=== PATIENT | female | born 1950 | race Caucasian/White ===

== ENCOUNTER → 2017-07-10 | Outpatient (CLI) | payer MEDICARE ==
[~2017-07-10] MED LIST: ALBU4ER NEB; ALBU90OI6 INH; AMIT25 PO; Aspir-Low81 MG PO; CITA20 PO; FEXPSEER PO; FISH1000 PO; HYDCHL25 PO; LISI5 PO; METF500 PO; NEBI5 PO; VICODIN 5-3001 EACH PO
== END ==
LOC: LAB SHORT 17:17 → LAB EV 17:17
DX: N39.0 Urinary tract infection, site not specified (principal)
CPT/HCPCS: 87086

== ENCOUNTER → 2018-04-23 | Outpatient (CLI) | payer MEDICARE | LOC: LAB SHORT 15:40 → LAB EV 15:40 | DX: R30.0 Dysuria (principal) | CPT/HCPCS: 87086 ==

== ENCOUNTER 2018-10-19 18:34 | Emergency (ER) | payer MEDICARE ==
[~2018-10-19] VITALS: Ht 162.6 cm; Wt 151.9 kg
[2018-10-19] MEDS ORDERED: TORS10 PO (19:46)
[2018-10-19] MEDS ORDERED: CETI5 PO (19:46)
[2018-10-19] MEDS ORDERED: TIOT18 INH (19:49)
[2018-10-19] MEDS ORDERED: POTA10T PO (19:50)
[2018-10-19] MEDS ORDERED: BREO ELLIPTA 11 EACH IH (19:53)
[2018-10-19] MEDS ORDERED: ESCI20 PO (19:54)
[2018-10-19] MEDS ORDERED: MONT10T PO (19:55)
[2018-10-19] MEDS ORDERED: OMEPRAZOLE20 MG PO (19:55)
== END 2018-10-19 21:42 | disposition home or self-care (01) ==
LOC: ER 18:34
DX: S00.531A Contusion of lip, initial encounter (principal); S00.12XA Contusion of left eyelid and periocular area, initial encounter; Z79.899 Other long term (current) drug therapy; Z79.82 Long term (current) use of aspirin; Z79.84 Long term (current) use of oral hypoglycemic drugs; Z79.51 Long term (current) use of inhaled steroids; Z87.891 Personal history of nicotine dependence; W01.0XXA Fall on same level from slipping, tripping and stumbling without subsequent striking against object, initial encounter
CPT/HCPCS: 36415; 70450; 90714; 99284-25

== ENCOUNTER 2019-06-02 17:22 | Emergency (ER) | payer MEDICARE ==
[~2019-06-02] VITALS: Ht 170.2 cm; Wt 155.1 kg
[~2019-06-02 17:22] MED LIST changes: +BREO ELLIPTA 11 EACH IH; +CETI5 PO; +ESCI20 PO; +MONT10T PO; +OMEPRAZOLE20 MG PO; +POTA10T PO; +TIOT18 INH; +TORS10 PO
[2019-06-02 19:03] LABS: BASOPHILS ABSOLUTE AUTO 0.01 K/mm3 (0.00-0.23); BASOPHILS PERCENT AUTO 0 % (0-2); EOSINOPHILS ABSOLUTE AUTO 0.11 K/mm3 (0.00-0.68); EOSINOPHILS PERCENT AUTO 2 % (0-6); Hematocrit 40.9 % (33.0-51.0); Hemoglobin 12.8 g/dL (11.5-16.0); IMMATURE GRAN ABSOLUTE AUTO 0.02 K/mm3 (0.00-0.10); IMMATURE GRAN PERCENT AUTO 0 % (0-1); LYMPHOCYTES ABSOLUTE AUTO 1.47 K/mm3 (0.84-5.20); LYMPHOCYTES PERCENT AUTO 21 % (21-46); MONOCYTES ABSOLUTE AUTO 0.38 K/mm3 (0.16-1.47); MONOCYTES PERCENT AUTO 5 % (4-13); Mean Corpuscular HGB 30.8 pg (26.0-34.0); Mean Corpuscular HGB Conc 31.3 g/dL (31.5-36.5); Mean Corpuscular Volume 99 fL (80-100); Mean Platelet Volume 11.1 fL (9.1-12.4); NEUTROPHILS ABSOLUTE AUTO 5.07 K/mm3 (1.96-9.15); NEUTROPHILS PERCENT AUTO 72 % (41-73); Platelet Count 141 K/mm3 (150-400); RDW Coefficient Variation 14.2 % (11.7-14.2); RDW Standard Deviation 51.2 fL (35.1-46.3); Red Blood Cell Count 4.15 M/mm3 (3.80-5.20); White Blood Cell Count 7.06 K/mm3 (4.00-11.30)
[2019-06-02 19:22] LABS: Alanine Aminotransfer (ALT/SGP 17 U/L (12-78); Albumin, Blood 3.2 g/dL (3.4-5.0); Albumin/Globulin Ratio 0.7 (0.8-1.8); Alk Phos 127 U/L (50-136); Anion Gap 7 mmol/L (6-16); Aspartate Aminotrans (AST/SGOT 36 U/L (12-37); Bilirubin, Total 0.9 mg/dL (0.1-1.0); Blood Urea Nitrogen 11 mg/dL (8-24); Bun/Creatinine Ratio 12.3 (12.0-20.0); CO2, Blood 25 mmol/L (21-32); Calcium, Blood 9.3 mg/dL (8.5-10.1); Chloride, Blood 106 mmol/L (98-108); Creatinine, Blood 0.89 mg/dL (0.40-1.00); Globulin, Blood 4.4 g/dL (2.2-4.0); Glomerular Filtration Rate >60 (60-); Glucose, Blood 144 mg/dL (70-99); Potassium, Blood 4.2 mmol/L (3.5-5.5); Sodium, Blood 138 mmol/L (136-145); Total Protein, Blood 7.6 g/dL (6.4-8.2)
[2019-06-02 21:35] LABS: Source, Urine Clean Catch
[2019-06-02 21:41] LABS: Appearance, Urine Clear (Clear); Bilirubin, Urine Neg (Neg); Blood, Urine 1+ (Neg); Color, Urine Amber (P-Yellow); Glucose Qualitative, Urine Neg (Neg); Ketones, Urine Neg (Neg); Leukocyte Esterase, Urine 1+ (Neg); Nitrite, Urine Neg (Neg); Protein, Urine 1+ (Neg); Specific Gravity, Urine 1.015 (1.003-1.022); Urobilinogen, Urine NORM (Normal)
[2019-06-02 21:48] LABS: Bacteria Mod /hpf; Mucus Light (0-Heavy); Red Blood Cells, Urine 0-2 /hpf (0-2); Squamous Epithelial Cells Mod /hpf (Few)
[2019-06-02] MEDS ORDERED: ONDA4ODT SL (22:07)
== END 2019-06-02 22:50 | disposition home or self-care (01) ==
LOC: ER 17:22
PROVIDERS: Emergency Medicine
DX: R10.30 Lower abdominal pain, unspecified (principal); E11.9 Type 2 diabetes mellitus without complications; I10 Essential (primary) hypertension; K21.9 Gastro-esophageal reflux disease without esophagitis; Z87.891 Personal history of nicotine dependence; Z88.8 Allergy status to other drugs, medicaments and biological substances; Z79.84 Long term (current) use of oral hypoglycemic drugs; Z79.899 Other long term (current) drug therapy
CPT/HCPCS: 36415; 74176; 80053; 81001; 83690; 85025; 87086; 99284-25; A9270-GY

== ENCOUNTER 2019-07-24 08:16 | Day surgery (SDC) | payer MEDICARE ==
[~2019-07-24] VITALS: Ht 165.1 cm; Wt 140.1 kg
[~2019-07-24 08:16] MED LIST changes: +ATOR10 PO; +CLOB.05TO; +MULTIVITAMINS1 EAC3 PO; +ONDA4ODT SL
--- NOTE | 2019-07-24 09:24 | NUR ---
History, Chart, Medications and Allergies reviewed before start of procedure. Lungs clear T/O to Auscultation. Patient confirms NPO status and agrees with scheduled surgery. Patient States Post-Procedure ride home has been arranged. Pre-Op teaching done. Pt verbalizes understanding.
--- NOTE | 2019-07-24 10:50 | NUR ---
Patient States Post-Procedure ride home has been arranged with her friend, Janey White.
--- NOTE | 2019-07-24 11:00 | NUR ---
assumed care of patient from Clarice THORNE. vss low bp given coffee to drink per request
--- NOTE | 2019-07-24 11:39 | NUR ---
PT A&OX4, VSS, DENIES PAIN. DENIES N&V, ANA PO. IV DC'D. Discharge instructions reviewed with patient. Patient verbalizes understanding. Copy given to patient to take home. Patient States Post-Procedure ride home has been arranged. TOOK PT OUT BY IZA, DIGITAL DATA ANALYST SIGNED.
== END 2019-07-24 23:19 | disposition home or self-care (01) ==
LOC: ORSCMMR 08:16 → ORD 10:00 → ORSCMMR 23:19
PROVIDERS: Internal Medicine Gastroenterology
PROC: 06L38CZ Occlusion of Esophageal Vein with Extraluminal Device, Via Natural or Artificial Opening Endoscopic (ICD-10-PCS; principal; 2019-07-24 10:00)
PROC: 0DJD8ZZ Inspection of Lower Intestinal Tract, Via Natural or Artificial Opening Endoscopic (ICD-10-PCS; principal; 2019-07-24 10:00)
DX: K74.60 Unspecified cirrhosis of liver (principal); K62.5 Hemorrhage of anus and rectum; Z86.010 Personal history of colon polyps; K57.30 Diverticulosis of large intestine without perforation or abscess without bleeding; K64.1 Second degree hemorrhoids; K76.6 Portal hypertension; K31.89 Other diseases of stomach and duodenum; K44.9 Diaphragmatic hernia without obstruction or gangrene; I85.00 Esophageal varices without bleeding; I10 Essential (primary) hypertension; N18.3 Chronic kidney disease, stage 3 (moderate); J44.9 Chronic obstructive pulmonary disease, unspecified; Z87.891 Personal history of nicotine dependence; G47.33 Obstructive sleep apnea (adult) (pediatric); E11.9 Type 2 diabetes mellitus without complications; Z79.84 Long term (current) use of oral hypoglycemic drugs; Z79.899 Other long term (current) drug therapy; Z79.82 Long term (current) use of aspirin; E66.01 Morbid (severe) obesity due to excess calories; Z68.43 Body mass index [BMI] 50.0-59.9, adult
CPT/HCPCS: 82947; J2704; J7120

== ENCOUNTER 2020-08-10 09:31 | Day surgery (SDC) | payer MEDICARE ==
[~2020-08-10] VITALS: Ht 160 cm; Wt 118.0 kg
[2020-08-10] MEDS ORDERED: MONTELUKAST SODI1 GM (09:48)
[2020-08-10] MEDS ORDERED: CITA20 (09:49)
[2020-08-10] MEDS ORDERED: Flonase 0.05% N16 GM (09:49)
== END 2020-08-10 11:16 | disposition home or self-care (01) ==
LOC: ORSCSDS 09:31
PROVIDERS: Internal Medicine Gastroenterology
PROC: 0DB58ZX Excision of Esophagus, Via Natural or Artificial Opening Endoscopic, Diagnostic (ICD-10-PCS; principal; 2020-08-10 10:45)
DX: K74.60 Unspecified cirrhosis of liver (principal); K31.89 Other diseases of stomach and duodenum; I85.00 Esophageal varices without bleeding; K44.9 Diaphragmatic hernia without obstruction or gangrene; K21.9 Gastro-esophageal reflux disease without esophagitis; I10 Essential (primary) hypertension; J44.9 Chronic obstructive pulmonary disease, unspecified; K76.6 Portal hypertension; K76.0 Fatty (change of) liver, not elsewhere classified; Z68.42 Body mass index [BMI] 45.0-49.9, adult; E66.01 Morbid (severe) obesity due to excess calories; Z87.891 Personal history of nicotine dependence; Z79.82 Long term (current) use of aspirin
CPT/HCPCS: 82947; J2704; J7120

== ENCOUNTER 2021-06-13 08:19 | Day surgery (SDC) | payer OTHER ==
[~2021-06-13] VITALS: Ht 160 cm; Wt 116.2 kg
[~2021-06-13 08:19] MED LIST changes: +CITA20; +Flonase 0.05% N16 GM; +MONTELUKAST SODI1 GM
== END 2021-06-13 10:26 | disposition home or self-care (01) ==
LOC: ORSCSDS 08:19
PROVIDERS: Internal Medicine Gastroenterology
PROC: 0DJ08ZZ Inspection of Upper Intestinal Tract, Via Natural or Artificial Opening Endoscopic (ICD-10-PCS; principal; 2021-06-13 09:30)
DX: K21.9 Gastro-esophageal reflux disease without esophagitis (principal); K64.4 Residual hemorrhoidal skin tags; I85.00 Esophageal varices without bleeding; K22.2 Esophageal obstruction; I10 Essential (primary) hypertension; J44.9 Chronic obstructive pulmonary disease, unspecified; E66.01 Morbid (severe) obesity due to excess calories; Z68.42 Body mass index [BMI] 45.0-49.9, adult; E11.9 Type 2 diabetes mellitus without complications; Z79.84 Long term (current) use of oral hypoglycemic drugs; Z79.899 Other long term (current) drug therapy
CPT/HCPCS: 82947; J2704; J7120

== ENCOUNTER 2022-03-01 07:25 | Day surgery (SDC) | payer OTHER ==
[~2022-03-01] VITALS: Ht 162.6 cm; Wt 118.9 kg
[2022-03-01] MEDS ORDERED: OXYC5 (07:52)
[2022-03-01] MEDS ORDERED: PRAV20 PO (07:53)
[2022-03-01] MEDS ORDERED: PROAIR DIGIHAL90 MCG (07:54)
[2022-03-01] MEDS ORDERED: VITAMIN D310 MC4 (07:55)
[2022-03-01] MEDS ORDERED: B-100 COMPLEX100 MG (07:56)
--- NOTE | 2022-03-01 10:27 | NUR ---
03/01/22 Rohan7 MALIK APPIAH DOCUMENTED LR, PT RECEIVED NORMAL SALINE- 500CC
--- NOTE | 2022-03-01 16:07 | NUR ---
03/01/22 1607 Hugo Turner FLUID TOTALS INCORRECT, BECAUSE INITIAL FLUID VOLUME INCORRECT.
== END 2022-03-01 09:00 | disposition home or self-care (01) ==
LOC: ORSCSDS 07:25
PROVIDERS: Ophthalmology
PROC: 08DK3ZZ Extraction of Left Lens, Percutaneous Approach (ICD-10-PCS; principal; 2022-03-01 08:30)
DX: H25.12 Age-related nuclear cataract, left eye (principal); H21.81 Floppy iris syndrome; F41.9 Anxiety disorder, unspecified; E78.5 Hyperlipidemia, unspecified; I10 Essential (primary) hypertension; K75.81 Nonalcoholic steatohepatitis (NASH); J44.9 Chronic obstructive pulmonary disease, unspecified; G47.33 Obstructive sleep apnea (adult) (pediatric); E11.9 Type 2 diabetes mellitus without complications; K21.9 Gastro-esophageal reflux disease without esophagitis; R00.0 Tachycardia, unspecified; E66.9 Obesity, unspecified; Z68.42 Body mass index [BMI] 45.0-49.9, adult; Z79.84 Long term (current) use of oral hypoglycemic drugs; Z79.82 Long term (current) use of aspirin; Z79.899 Other long term (current) drug therapy
CPT/HCPCS: 82947; J2001; J2250; J3010; J3301; J7040; V2632

== ENCOUNTER 2022-03-15 10:43 | Day surgery (SDC) | payer OTHER ==
[~2022-03-15] VITALS: Ht 162.6 cm; Wt 117.3 kg
[~2022-03-15 10:43] MED LIST changes: +B-100 COMPLEX100 MG; +OXYC5; +PRAV20 PO; +PROAIR DIGIHAL90 MCG; +VITAMIN D310 MC4
--- NOTE | 2022-03-15 11:51 | NUR ---
03/15/22 1151 Jenna Carter TETRACAINE TO RIGHT EYE AT 1136 PLEDGET TO RIGHT EYE AT 1137 BY [facility].HENRIQUET
== END 2022-03-15 13:12 | disposition home or self-care (01) ==
LOC: ORSCSDS 10:43
PROVIDERS: Ophthalmology
PROC: 08RJ3JZ Replacement of Right Lens with Synthetic Substitute, Percutaneous Approach (ICD-10-PCS; principal; 2022-03-15 12:00)
DX: H25.11 Age-related nuclear cataract, right eye (principal); I10 Essential (primary) hypertension; J45.909 Unspecified asthma, uncomplicated; E11.9 Type 2 diabetes mellitus without complications; Z79.84 Long term (current) use of oral hypoglycemic drugs; Z79.899 Other long term (current) drug therapy
CPT/HCPCS: 82947; J2001; J2250; J3010; J3301; J7040; V2632

== ENCOUNTER 2022-05-02 10:36 | Day surgery (SDC) | payer OTHER ==
[~2022-05-02] VITALS: Ht 160 cm; Wt 118.0 kg
[2022-05-02] MEDS ORDERED: FLUTICASONE-SA1 EAC1 (11:06)
[2022-05-02] MEDS ORDERED: BREO ELLIPTA 11 EAC1 (11:06)
[2022-05-02] MEDS ORDERED: CLOBETASOL EMOL15 G1 (11:06)
[2022-05-02] MEDS ORDERED: ASPI81CH (11:06)
[2022-05-02] MEDS ORDERED: ALBU2.5V5 (11:06)
[2022-05-02] MEDS ORDERED: CITALOPRAM HBR10 MG (11:06)
[2022-05-02] MEDS ORDERED: FISH OIL 1,2001 EAC7 (11:06)
[2022-05-02] MEDS ORDERED: METF500 (11:07)
[2022-05-02] MEDS ORDERED: OMEP20ER (11:07)
[2022-05-02] MEDS ORDERED: NEBI5 (11:07)
[2022-05-02] MEDS ORDERED: MONT4 (11:07)
[2022-05-02] MEDS ORDERED: TIOT18 (11:08)
[2022-05-02] MEDS ORDERED: TORS10 (11:08)
[2022-05-02] MEDS ORDERED: CETI5 (11:08)
[2022-05-02] MEDS ORDERED: POTA8 (11:08)
[2022-05-02] MEDS ORDERED: OXAYDO5 M1 (11:08)
== END 2022-05-02 13:23 | disposition home or self-care (01) ==
LOC: ORSCSDS 10:36
PROVIDERS: Internal Medicine Gastroenterology
PROC: 0DJ08ZZ Inspection of Upper Intestinal Tract, Via Natural or Artificial Opening Endoscopic (ICD-10-PCS; principal; 2022-05-02 12:00)
DX: R13.10 Dysphagia, unspecified (principal); K74.60 Unspecified cirrhosis of liver; I85.10 Secondary esophageal varices without bleeding; K75.81 Nonalcoholic steatohepatitis (NASH); J44.9 Chronic obstructive pulmonary disease, unspecified; E78.5 Hyperlipidemia, unspecified; I12.9 Hypertensive chronic kidney disease with stage 1 through stage 4 chronic kidney disease, or unspecified chronic kidney disease; R06.02 Shortness of breath; E11.22 Type 2 diabetes mellitus with diabetic chronic kidney disease; N18.9 Chronic kidney disease, unspecified; K21.9 Gastro-esophageal reflux disease without esophagitis; G47.33 Obstructive sleep apnea (adult) (pediatric); F41.9 Anxiety disorder, unspecified; E66.01 Morbid (severe) obesity due to excess calories; Z68.42 Body mass index [BMI] 45.0-49.9, adult; Z79.82 Long term (current) use of aspirin; Z79.84 Long term (current) use of oral hypoglycemic drugs; Z79.899 Other long term (current) drug therapy
CPT/HCPCS: 82947; J2704; J7120

== ENCOUNTER 2024-04-08 12:20 | Inpatient (IN) | payer OTHER ==
[~2024-04-08] VITALS: Ht 160 cm; Wt 115.6 kg
[~2024-04-08 12:20] MED LIST changes: +ALBU2.5V5; +ALBU90OI INH; +ASPI81CH PO; +BREO ELLIPTA 11 EAC1; +BREO ELLIPTA 21 EAC1 INH; +CITALOPRAM HBR10 MG PO; +CLOBETASOL EMOL15 G1; +FISH OIL 1,2001 EAC7; +FLUTICASONE-SA1 EAC1; +IPRAT-ALBUT 0.5-3 ML; +METF500; +MONT4; +NADO20 PO; +NEBI5; +OMEP20ER PO; +ONDA4ODT MM; +OXAYDO5 M1 PO; +POTA8; +SUPER B-50 COM1 EACH PO; +TIOT18; +VITAMIN D310 MC4 PO
[2024-04-08] MEDS ORDERED: NS 1,000 ML IV SCH (13:40)
[2024-04-08 13:47] LABS: Albumin, Blood 2.9 g/dL (3.4-5.0); Albumin/Globulin Ratio 0.7 (0.8-1.8); Bun/Creatinine Ratio 17.1 (12.0-20.0); Calcium, Blood 8.7 mg/dL (8.5-10.1); Creatinine, Blood 0.99 mg/dL (0.40-1.00); Globulin, Blood 3.9 g/dL (2.2-4.0); Magnesium, Blood 1.9 mg/dL (1.6-2.4); Potassium, Blood 4.6 mmol/L (3.5-5.5); Thyroid Stimulating Hormone 1.39 uIU/mL (0.360-4.800); Total Protein, Blood 6.8 g/dL (6.4-8.2)
[2024-04-08] MEDS ORDERED: Ondansetron HCl 2 MG / ML 2ML Vial IV ONE (14:25)
[2024-04-08] MEDS ORDERED: Diltiazem HCl 5 MG / ML 5ML Vial IV ONE (14:50)
[2024-04-08 15:24] LABS: BASOPHILS ABSOLUTE AUTO 0.01 K/mm3 (0.00-0.23); BASOPHILS PERCENT AUTO 0 % (0-2); EOSINOPHILS ABSOLUTE AUTO 0.03 K/mm3 (0.00-0.68); EOSINOPHILS PERCENT AUTO 1 % (0-6); Hematocrit 39.3 % (33.0-51.0); Hemoglobin 13.5 g/dL (11.5-16.0); IMMATURE GRAN ABSOLUTE AUTO 0.01 K/mm3 (0.00-0.10); IMMATURE GRAN PERCENT AUTO 0 % (0-1); LYMPHOCYTES ABSOLUTE AUTO 0.56 K/mm3 (0.84-5.20); LYMPHOCYTES PERCENT AUTO 11 % (21-46); MONOCYTES ABSOLUTE AUTO 0.31 K/mm3 (0.16-1.47); MONOCYTES PERCENT AUTO 6 % (4-13); Mean Corpuscular HGB Conc 34.4 g/dL (31.5-36.5); Mean Corpuscular Volume 96 fL (80-100); Mean Platelet Volume 12.8 fL (9.1-12.4); NEUTROPHILS ABSOLUTE AUTO 4.05 K/mm3 (1.96-9.15); NEUTROPHILS PERCENT AUTO 82 % (41-73); Platelet Count 63 K/mm3 (150-400); RDW Coefficient Variation 15.1 % (11.7-14.2); RDW Standard Deviation 53.6 fL (35.1-46.3); Red Blood Cell Count 4.09 M/mm3 (3.80-5.20); White Blood Cell Count 4.97 K/mm3 (4.00-11.30)
[2024-04-08] MEDS ORDERED: PROPRANOLOL HCL IV ONE (16:10)
[2024-04-08] MEDS ORDERED: PROPRANOLOL HCL IV SCH (16:55)
[2024-04-08] MEDS ORDERED: Ondansetron 4 MG SoluTab MM PRN (17:40)
[2024-04-08] MEDS ORDERED: OxyCODONE HCL 5 MG TAB PO PRN (17:40)
[2024-04-08] MEDS ORDERED: Magnesium Sulf 2 GM/Water 50ML 50 ML IV STA (17:40)
[2024-04-08] MEDS ORDERED: FLU VACC TS2024-25(6MOS UP)/PF 45 MCG/0.5 ML SYRINGE IM SCH (18:00)
[2024-04-08] MEDS ORDERED: Propranolol HCL 20 MG TAB PO SCH (18:03)
[2024-04-08] MEDS ORDERED: PROPRANOLOL HCL IV PRN (18:50)
[2024-04-08] MEDS ORDERED: Pravastatin Sodium 20 MG Tab PO SCH (21:00)
[2024-04-08 22:44] VITALS: BP 110/64
--- NOTE | 2024-04-08 23:00 | NUR ---
pt arrived to room via stretcher with her daughter. PT ALERT AND ORIENTED AND ABLE TO ANSWER ALL QUESTIONS. PTS HEART RATE CURRENTLY BETWEEN 98-120. PT C/O BACK PAIN, NOTIFIED AND NEW ORDERS OBTAINED. ADMISSION COMPLETE, PT RESTING COMFORTABLY
[2024-04-09] VITALS (8 sets, daily range): BP systolic 93–140; BP diastolic 58–107
[2024-04-09 04:18] LABS: BASOPHILS ABSOLUTE AUTO 0.01 K/mm3 (0.00-0.23); BASOPHILS PERCENT AUTO 0 % (0-2); EOSINOPHILS ABSOLUTE AUTO 0.02 K/mm3 (0.00-0.68); EOSINOPHILS PERCENT AUTO 1 % (0-6); Hematocrit 37.6 % (33.0-51.0); Hemoglobin 12.8 g/dL (11.5-16.0); IMMATURE GRAN ABSOLUTE AUTO 0.01 K/mm3 (0.00-0.10); IMMATURE GRAN PERCENT AUTO 0 % (0-1); LYMPHOCYTES ABSOLUTE AUTO 0.84 K/mm3 (0.84-5.20); LYMPHOCYTES PERCENT AUTO 19 % (21-46); MONOCYTES ABSOLUTE AUTO 0.37 K/mm3 (0.16-1.47); MONOCYTES PERCENT AUTO 8 % (4-13); Mean Corpuscular Volume 97 fL (80-100); Mean Platelet Volume 12.1 fL (9.1-12.4); NEUTROPHILS ABSOLUTE AUTO 3.18 K/mm3 (1.96-9.15); NEUTROPHILS PERCENT AUTO 72 % (41-73); Platelet Count 56 K/mm3 (150-400); RDW Coefficient Variation 15.3 % (11.7-14.2); RDW Standard Deviation 53.8 fL (35.1-46.3); Red Blood Cell Count 3.88 M/mm3 (3.80-5.20); White Blood Cell Count 4.43 K/mm3 (4.00-11.30)
[2024-04-09 04:41] LABS: Albumin, Blood 2.6 g/dL (3.4-5.0); Albumin/Globulin Ratio 0.7 (0.8-1.8); Bilirubin, Total 1.6 mg/dL (0.1-1.0); Bun/Creatinine Ratio 19.3 (12.0-20.0); Calcium, Blood 8.8 mg/dL (8.5-10.1); Creatinine, Blood 0.83 mg/dL (0.40-1.00); Globulin, Blood 3.7 g/dL (2.2-4.0); Total Protein, Blood 6.3 g/dL (6.4-8.2)
--- NOTE | 2024-04-09 05:15 | NUR ---
PT UP TO BEDSIDE COMMODE, REFUSING TO USE PERIWICK. PT EDUCATED ON HEARTRATE ELEVATION INTO 130S WHEN OOB, PT AWARE BUT REFUSING PERIWICK
[2024-04-09] MEDS ORDERED: Vitamin B Cmplx/Vit C/Folic Ac 1 Tab PO SCH (06:00)
[2024-04-09] MEDS ORDERED: Omeprazole 20 MG CapCR PO SCH (06:00)
--- NOTE | 2024-04-09 08:13 | NUR ---
Pt alert and oriented this morning, with lots of questions about her plan of care, medications, etc. Heart rate is 111 at rest. Assisted to BSC to void and have small BM, heart rate 135-145 bpm, atrial fibrillation with the activity. No dyspnea with the activity. Denies pain/discomfort with activity, but says she has chronic neck and back pain. Assisted to recliner to get relief from pain. Her heart rate settled down after the activity. She is asking for oxycodone for relief, which was provided for her. She is also very worried about having blood in her stool, and says that she was told with her liver disease she needs to watch for tarry stools.
[2024-04-09] MEDS ORDERED: Torsemide 10 MG TAB PO SCH (09:00)
[2024-04-09] MEDS ORDERED: Aspirin 81 MG Chew PO SCH (09:00)
[2024-04-09] MEDS ORDERED: Enoxaparin 40 MG/0.4 ML SYR SC SCH (09:00)
[2024-04-09] MEDS ORDERED: Potassium Chloride 10 Meq Tablet SA PO SCH (09:00)
[2024-04-09] MEDS ORDERED: Montelukast Sodium 10 MG Tab PO SCH (09:00)
[2024-04-09] MEDS ORDERED: Loratadine 10 MG Tab PO SCH (09:00)
[2024-04-09] MEDS ORDERED: Citalopram Hydrobromide 20 MG Tab PO SCH (09:00)
[2024-04-09] MEDS ORDERED: MetFORMIN HCl 500 mg PO SCH (09:00)
[2024-04-09] MEDS ORDERED: Cholecalciferol 400 unit Tab PO SCH (09:00)
--- NOTE | 2024-04-09 11:34 | NUR ---
Assisted up to BSC to void for UA. Sent to lab.
[2024-04-09 11:38] LABS: Source, Urine Clean Catch
[2024-04-09 11:46] LABS: Appearance, Urine Clear (Clear); Bilirubin, Urine Neg (Neg); Blood, Urine 5+ (Neg); Color, Urine Amber (P-Yellow); Glucose Qualitative, Urine Neg (Neg); Ketones, Urine Neg (Neg); Leukocyte Esterase, Urine 2+ (Neg); Nitrite, Urine Neg (Neg); Protein, Urine 1+ (Neg); Urobilinogen, Urine 2+ (Normal)
[2024-04-09 12:27] LABS: Hyaline Casts 25-50 /lpf (0-2)
[2024-04-09 12:29] LABS: Amorphous Mod (0-Heavy); Bacteria Many /hpf; Mucus Heavy (0-Heavy); Renal Epithelial Rare /hpf (0-Rare); Squamous Epithelial Cells Many /hpf (Few); Transitional Epithelial Cells Few /hpf (0-Rare)
--- NOTE | 2024-04-09 13:13 | NUR ---
ZOFRAN FOR MILD NAUSEA FOLLOWING LUNCH.
--- NOTE | 2024-04-09 13:17 | NUR ---
Heart rate 122-130, pt is not symptomatic while up to the toilet in bathroom.
--- NOTE | 2024-04-09 13:19 | NUR ---
Pt up to bathroom to use the toilet. Heart rate 122-140 bpm, and she feels weak and short of breath with the activity.
[2024-04-09] MEDS ORDERED: Albuterol HFA200 ACT/6.7 GM INH INH PRN (21:00)
[2024-04-10] VITALS (7 sets, daily range): BP systolic 94–142; BP diastolic 67–113
[2024-04-10] MEDS ORDERED: Propranolol HCL 60 MG CAPCR PO SCH ×2 (09:00)
[2024-04-10] MEDS ORDERED: Propranolol HCl60 MG PO (13:58)
[2024-04-10] MEDS ORDERED: Furosemide 10 MG/ML 4ML Vial IV ONE (14:45)
--- NOTE | 2024-04-10 15:11 | NUR ---
DR. MARIE TO BESIDE AND DISCUSSED PLAN OF CARE WITH THE PT. THIS RN ASKED IF WE WOULD CONSIDER ANY ORAL ANTICOAGULATION D/T NEW AFIB/AFLUTTER BUT HX OF VARACIES AND PORTAL HTN. DR. MARIE WANTED TO DO A CARDIOLOGY CONSULT TO SEE IF THE PT WAS A CANDIDATE FOR CARDIOVERSION. CONSULT CALLED TO OFFICE. THIS WAS DISCUSSED WITH ADMINISTRATIVE MEDICAL DIRECTOR GABE.
[2024-04-10 15:19] LABS: BASOPHILS ABSOLUTE AUTO 0.01 K/mm3 (0.00-0.23); BASOPHILS PERCENT AUTO 0 % (0-2); EOSINOPHILS ABSOLUTE AUTO 0.12 K/mm3 (0.00-0.68); EOSINOPHILS PERCENT AUTO 3 % (0-6); Hematocrit 38.1 % (33.0-51.0); Hemoglobin 12.6 g/dL (11.5-16.0); IMMATURE GRAN ABSOLUTE AUTO 0.01 K/mm3 (0.00-0.10); IMMATURE GRAN PERCENT AUTO 0 % (0-1); LYMPHOCYTES ABSOLUTE AUTO 1.08 K/mm3 (0.84-5.20); LYMPHOCYTES PERCENT AUTO 24 % (21-46); MONOCYTES ABSOLUTE AUTO 0.39 K/mm3 (0.16-1.47); MONOCYTES PERCENT AUTO 9 % (4-13); Mean Corpuscular HGB 32.8 pg (26.0-34.0); Mean Corpuscular HGB Conc 33.1 g/dL (31.5-36.5); Mean Corpuscular Volume 99 fL (80-100); Mean Platelet Volume 12.2 fL (9.1-12.4); NEUTROPHILS PERCENT AUTO 64 % (41-73); Platelet Count 54 K/mm3 (150-400); RDW Coefficient Variation 15.2 % (11.7-14.2); RDW Standard Deviation 55.8 fL (35.1-46.3); Red Blood Cell Count 3.84 M/mm3 (3.80-5.20); White Blood Cell Count 4.51 K/mm3 (4.00-11.30)
[2024-04-10 16:04] LABS: Albumin, Blood 2.5 g/dL (3.4-5.0); Albumin/Globulin Ratio 0.7 (0.8-1.8); Bilirubin, Total 1.2 mg/dL (0.1-1.0); Bun/Creatinine Ratio 17.4 (12.0-20.0); Calcium, Blood 8.7 mg/dL (8.5-10.1); Creatinine, Blood 1.09 mg/dL (0.40-1.00); Globulin, Blood 3.7 g/dL (2.2-4.0); Potassium, Blood 4.2 mmol/L (3.5-5.5); Total Protein, Blood 6.2 g/dL (6.4-8.2)
--- NOTE | 2024-04-10 17:22 | NUR ---
SHIFT SUMMARY THE PT IS A&oX4, SBA W/ FWW, AND SHE IS ABLE TO MAKE HER NEEDS KNOWN. SHE HAS BEEN ON RA WHILE AWAKE AND SHE AHS HER HOME CPAP THAT SHE USES WHEN ASLEEP. SP02 >93%. THE PT HAS HAD INT SOB, AND HAS HAD BREATHING TREATMENT PER RT/EMAR. SHE HAS BEEN AFIB/AFLUTTER 90'S-100'S. BP STABLE. CARDIOLOGY WAS CONSULTED AND THEY ARE RECCOMENDING A WATCHMAN OUTPT. THE PT IS MEDICAL STATUS WITH TELE BUT DOES NOT HAVE A BED ASSIGNED AT THIS TIME. NO ACUTE EVENTS THIS SHIFT. PROBABLE D/C 04/[address] MARIE. SEE NOTES FOR ANY UPDATES.
--- NOTE | 2024-04-10 22:09 | NUR ---
CALLED REPORT TO LAURIE THORNE. PT TO BE TRANSFERRED TO ROOM 359. ALL BELONGINGS SENT WITH THE PT.
--- NOTE | 2024-04-10 22:09 | NUR ---
TOOK REPORT ON PT FROM CLAUDIO THORNE COMING TO ROOM 359 FROM PCU 05.
--- NOTE | 2024-04-10 22:44 | NUR ---
PT ARRIVED ON UNIT FROM [facility] 05 @ [id number] WITH ALL BELONGINGS, HOME CPAP, AND MEDICATIONS.
[2024-04-11 02:50] VITALS: BP 92/58
--- NOTE | 2024-04-11 05:23 | NUR ---
SHIFT SUMMARY NOC PT A/O X 4. PLEASANT AND COOPRATIVE WITH CARE. VSS. TRANSFER FROM U 05. PT ON TELE AFIB @ 85 BPM. ON CPAP FOR SLEEP SPO2 >94%. PT HAD C/O OF SOB AND GIVEN ALBUTEROL PER EMAR. PT IS SBA TO BATHROOM. PT CURRENTLY RESTING WITH BED IN LOWEST POSITION, AND CALL LIGHT WITHIN REACH.
[2024-04-11 06:49] LABS: BASOPHILS ABSOLUTE AUTO 0.02 K/mm3 (0.00-0.23); BASOPHILS PERCENT AUTO 1 % (0-2); EOSINOPHILS ABSOLUTE AUTO 0.11 K/mm3 (0.00-0.68); EOSINOPHILS PERCENT AUTO 3 % (0-6); Hematocrit 35.4 % (33.0-51.0); Hemoglobin 11.9 g/dL (11.5-16.0); IMMATURE GRAN PERCENT AUTO 0 % (0-1); LYMPHOCYTES ABSOLUTE AUTO 1.24 K/mm3 (0.84-5.20); LYMPHOCYTES PERCENT AUTO 33 % (21-46); MONOCYTES ABSOLUTE AUTO 0.26 K/mm3 (0.16-1.47); MONOCYTES PERCENT AUTO 7 % (4-13); Mean Corpuscular HGB Conc 33.6 g/dL (31.5-36.5); Mean Corpuscular Volume 98 fL (80-100); Mean Platelet Volume 12.1 fL (9.1-12.4); NEUTROPHILS ABSOLUTE AUTO 2.19 K/mm3 (1.96-9.15); NEUTROPHILS PERCENT AUTO 57 % (41-73); Platelet Count 59 K/mm3 (150-400); RDW Coefficient Variation 14.9 % (11.7-14.2); Red Blood Cell Count 3.61 M/mm3 (3.80-5.20); White Blood Cell Count 3.82 K/mm3 (4.00-11.30)
[2024-04-11 07:26] LABS: Albumin, Blood 2.5 g/dL (3.4-5.0); Albumin/Globulin Ratio 0.7 (0.8-1.8); Bun/Creatinine Ratio 19.3 (12.0-20.0); Calcium, Blood 8.7 mg/dL (8.5-10.1); Creatinine, Blood 0.93 mg/dL (0.40-1.00); Globulin, Blood 3.7 g/dL (2.2-4.0); Total Protein, Blood 6.2 g/dL (6.4-8.2)
[2024-04-11 07:32] VITALS: BP 108/80
--- NOTE | 2024-04-11 09:00 | NUR ---
pt laying in bed, awake a/ox3-4, pleasant and cooperative with care, follows commands well, asking for pain meds for back pain, this was given, lungs are clear t/o, resp even and unlabored, no cough noted, on r/a, hrr, tele in place running sr per monitor, see strip, 2+ edema noted to b/l le, ppp+1, cap refill<3 sec, vs stable, afebrile, piv to rfa site is clear and patent, btx4, abd flat soft nontender, voids without diff, pullups in place, reports reg bm's, skin c/w/d, maew, shimon, call light in reach.
[2024-04-11 11:03] VITALS: BP 131/77
--- NOTE | 2024-04-11 12:47 | NUR ---
pt ambulating to the bathroom pretty indep, using a walker, shower offered, she declined. no needs at this time, call light in reach.
[2024-04-11 16:00] VITALS: BP 118/70
--- NOTE | 2024-04-11 18:41 | NUR ---
PT PLEASANT TODAY. DID STATE CONCERNS TO GO HOME WITH AFIB. REQUESTED DR TO COME SEE HER. HE DID THIS NORA. PLAN FOR D/C TOMORROW. STATES WILL BE IN AM. DAUGHTER IN TO VISIT AND WAS HERE WHEN DR HERE. STATES ANSWERED QUESTIONS. PT REQUESTED BATH EITHER TONITE OR TOMORROW AM. NO FURTHER CONCERNS NOTED. BED IN LOW POSITIOIN, CALL LITE IN REACH, CALLS APROP
[2024-04-11 20:01] VITALS: BP 110/72
[2024-04-12 00:15] VITALS: BP 123/95
[2024-04-12 04:31] VITALS: BP 133/72
--- NOTE | 2024-04-12 06:06 | NUR ---
SHIFT SUMMARY NOC PT A/O X 4. PLEASANT AND COOPERATIVE WITH CARE. VSS. NO ACUTE EVENTS TO REPORT. PT ON TELE AFIB IN 80'S-100'S. NO C/O OF SOB, PALPITATIONS. ON RA SPO2 >95%, PT ENDORSES SOB WITH AMBULATION STILL, IS USING HOME CPAP FOR SLEEP. CHRONIC PAIN BEING MANAGED PER EMAR. PT DECLINED SHOWER DURING SHIFT AND WANTS IN AM BEFORE PT IS EXPECTED TO DISCHARGE HOME WITH DAUGHTER PROVIDING TRANSPORTATION. PT CURRENTLY RESTING WITH BED IN LOWEST POSITION, AND CALL LIGHT WITHIN REACH.
[2024-04-12 07:21] VITALS: BP 126/97
[2024-04-12] MEDS ORDERED: Furosemide 10 MG/ML 4ML Vial IV SCH (09:00)
[2024-04-12 11:22] VITALS: BP 123/73
[2024-04-12] MEDS ORDERED: SPIR25 PO (12:50)
--- NOTE | 2024-04-12 14:00 | NUR ---
SHIFT SUMMARY AND DISCHARGE PATIENT UP INDEPENDENTLY IN THE ROOM. PATIENT STATES THAT SHE FEELS WEAK AT TIMES. PATIENT EAGER TO GO HOME. DISCHARGE INSTRUCTIONS REVIEWED WITH PATIENT. RX SENT TO [facility] PER PATIENT'S REQUEST. IV DC'D FROM Ming RIZVI. DAUGHTER PRESENT FOR DISCHARGE. PROVIDED EDUCATION RELATED TO PACING SELF, FLUID RETENTION, A-FIB, AND LIMITING FLUIDS. PATIENT TAKEN OUT VIA WHEELCHAIR BY TOPSTITCHER LOCKSTITCH.
== END 2024-04-12 14:01 | disposition home health service (06) | DRG 309 ==
LOC: ER 12:20 → ERHOLD 17:57 → PCU 17:57 → MEDS 04-10 22:24 → ENPENDDIS 04-12 10:28 → MEDS 04-12 14:01
PROVIDERS: Internal Medicine; Student in an Organized Health Care Education/Training Program; ADMIT Student in an Organized Health Care Education/Training Program
DX: I48.91 Unspecified atrial fibrillation (principal); F11.20 Opioid dependence, uncomplicated; I85.00 Esophageal varices without bleeding; Z68.41 Body mass index [BMI] 40.0-44.9, adult; K76.6 Portal hypertension; K74.60 Unspecified cirrhosis of liver; K21.9 Gastro-esophageal reflux disease without esophagitis; E66.9 Obesity, unspecified; J44.9 Chronic obstructive pulmonary disease, unspecified; G47.33 Obstructive sleep apnea (adult) (pediatric); I05.0 Rheumatic mitral stenosis; F41.1 Generalized anxiety disorder; D69.59 Other secondary thrombocytopenia; G89.4 Chronic pain syndrome; E11.42 Type 2 diabetes mellitus with diabetic polyneuropathy; J44.89 Other specified chronic obstructive pulmonary disease; M19.90 Unspecified osteoarthritis, unspecified site; E11.22 Type 2 diabetes mellitus with diabetic chronic kidney disease; D73.1 Hypersplenism; N18.30 Chronic kidney disease, stage 3 unspecified; H90.5 Unspecified sensorineural hearing loss; E78.5 Hyperlipidemia, unspecified; K75.81 Nonalcoholic steatohepatitis (NASH); I11.9 Hypertensive heart disease without heart failure; I12.9 Hypertensive chronic kidney disease with stage 1 through stage 4 chronic kidney disease, or unspecified chronic kidney disease; Z88.8 Allergy status to other drugs, medicaments and biological substances; Z79.82 Long term (current) use of aspirin; Z79.899 Other long term (current) drug therapy; Z79.51 Long term (current) use of inhaled steroids; Z79.84 Long term (current) use of oral hypoglycemic drugs; Z90.49 Acquired absence of other specified parts of digestive tract; Z87.19 Personal history of other diseases of the digestive system; Z98.1 Arthrodesis status; Z98.890 Other specified postprocedural states; Z87.891 Personal history of nicotine dependence
CPT/HCPCS: 36415; 71046; 80053; 81001; 83735; 83880; 84145; 84439; 84443; 85025; 93005; 93010; 93306; 94640; 94664; 94760; 94762; 96374; 96375; 96376; 99285-25; A9270; J1650; J1800; J1940; J2405; J3475; J7030

== ENCOUNTER 2024-04-30 07:54 | Emergency (ER) | payer OTHER ==
[~2024-04-30] VITALS: Ht 160 cm; Wt 109.8 kg
[~2024-04-30 07:54] MED LIST changes: +PROM25 PO; +Propranolol HCl60 MG PO; +SPIR25 PO
[2024-04-30 10:38] LABS: BASOPHILS ABSOLUTE AUTO 0.02 K/mm3 (0.00-0.23); BASOPHILS PERCENT AUTO 0 % (0-2); EOSINOPHILS PERCENT AUTO 2 % (0-6); Hematocrit 39.4 % (33.0-51.0); IMMATURE GRAN ABSOLUTE AUTO 0.01 K/mm3 (0.00-0.10); IMMATURE GRAN PERCENT AUTO 0 % (0-1); LYMPHOCYTES PERCENT AUTO 24 % (21-46); MONOCYTES PERCENT AUTO 7 % (4-13); Mean Corpuscular HGB 32.6 pg (26.0-34.0); Mean Corpuscular Volume 99 fL (80-100); Mean Platelet Volume 12.2 fL (9.1-12.4); NEUTROPHILS ABSOLUTE AUTO 3.08 K/mm3 (1.96-9.15); NEUTROPHILS PERCENT AUTO 67 % (41-73); Platelet Count 72 K/mm3 (150-400); RDW Coefficient Variation 15.3 % (11.7-14.2); RDW Standard Deviation 55.8 fL (35.1-46.3); Red Blood Cell Count 3.99 M/mm3 (3.80-5.20); White Blood Cell Count 4.61 K/mm3 (4.00-11.30)
[2024-04-30] MEDS ORDERED: Ondansetron 4 MG SoluTab SL ONE (10:55)
[2024-04-30 11:04] LABS: Albumin, Blood 3.1 g/dL (3.4-5.0); Albumin/Globulin Ratio 0.8 (0.8-1.8); Bilirubin, Total 1.2 mg/dL (0.1-1.0); Bun/Creatinine Ratio 16.5 (12.0-20.0); Creatinine, Blood 1.09 mg/dL (0.40-1.00); Globulin, Blood 3.8 g/dL (2.2-4.0); Potassium, Blood 3.5 mmol/L (3.5-5.5); Total Protein, Blood 6.9 g/dL (6.4-8.2)
[2024-04-30 12:00] VITALS: BP 122/73
== END 2024-04-30 12:14 | disposition home or self-care (01) ==
LOC: ER 07:54
PROVIDERS: Emergency Medicine
DX: H53.9 Unspecified visual disturbance (principal); I48.91 Unspecified atrial fibrillation; E11.9 Type 2 diabetes mellitus without complications; J44.9 Chronic obstructive pulmonary disease, unspecified; E78.5 Hyperlipidemia, unspecified; Z87.891 Personal history of nicotine dependence
CPT/HCPCS: 70450; 80053; 85025; 93005; 93010; 99284-25; A9270

== ENCOUNTER 2024-06-12 09:09 | Day surgery (SDC) | payer OTHER ==
[~2024-06-12] VITALS: Ht 160 cm; Wt 104.4 kg
[~2024-06-12 09:09] MED LIST changes: +Lactated Ringer's 1,000 ML IV ONE
[2024-06-12] MEDS ORDERED: propofoL 50 ML IV ONE (09:48)
[2024-06-12] MEDS ORDERED: Lactated Ringer's 1,000 ML IV ONE (09:58)
[2024-06-12] MEDS ORDERED: Benzocaine Oral Spray 0.5ML UD ONE (10:06)
[2024-06-12] MEDS ORDERED: Citric Acid/Sodium Citrate 30 ML BTL ONE (10:07)
[2024-06-12] MEDS ORDERED: Ondansetron HCl 2 MG / ML 2ML Vial ONE (10:09)
--- NOTE | 2024-06-12 10:15 | NUR ---
06/12/24 1015 Turner, Hugo 4MG, IV, ZOFRAN PULLED AND GIVEN TO DR. CANCINO PRE-OP.
[2024-06-12] MEDS ORDERED: Etomidate 2MG / ML 10ML Vial ONE (10:16)
--- NOTE | 2024-06-12 12:32 | NUR ---
06/12/24 1232 Kamila Olvera PT. WITH SCATTERED WHEEZE (SOUNDS LIKE A SQUEEZE SOUND.) PT. HAS ASTHMA/COPD.
[2024-06-12 12:34] VITALS: BP 112/71
[2024-06-12] MEDS ORDERED: Esmolol HCL 10 MG/ML 10ML VIAL XX ONE (16:12)
[2024-06-12] MEDS ORDERED: Phenylephrine HCl 100 MCG/ML-NS 10MLSYR (1MG/10ML) IV ONE (16:12)
== END 2024-06-12 11:25 | disposition home or self-care (01) ==
LOC: ORSCSDS 09:09
PROVIDERS: Specialist
PROC: 0DB68ZX Excision of Stomach, Via Natural or Artificial Opening Endoscopic, Diagnostic (ICD-10-PCS; principal; 2024-06-12 10:30)
DX: K74.60 Unspecified cirrhosis of liver (principal); R13.10 Dysphagia, unspecified; I85.00 Esophageal varices without bleeding; K44.9 Diaphragmatic hernia without obstruction or gangrene; K76.6 Portal hypertension; K75.81 Nonalcoholic steatohepatitis (NASH); E78.5 Hyperlipidemia, unspecified; I10 Essential (primary) hypertension; K21.9 Gastro-esophageal reflux disease without esophagitis; J44.9 Chronic obstructive pulmonary disease, unspecified; I48.91 Unspecified atrial fibrillation; E11.9 Type 2 diabetes mellitus without complications; E66.01 Morbid (severe) obesity due to excess calories; Z68.41 Body mass index [BMI] 40.0-44.9, adult; Z79.82 Long term (current) use of aspirin; Z79.899 Other long term (current) drug therapy
CPT/HCPCS: 82947; 88305; 88342; A9270; J2371; J2405; J2704; J7120

== ENCOUNTER → 2024-06-23 | Outpatient (CLI) | payer OTHER ==
[~2024-06-23] MED LIST changes: -Lactated Ringer's 1,000 ML IV ONE
[2024-06-23 20:52] LABS: Creatinine, Urine Random 62.3 mg/dL (27.00-270.00); Microalb/Creat Ratio UR, Rand 51.043 mg/g (0.000-30.000); Microalbumin, Random Urine 31.8 mg/L (0.000-20.000)
== END ==
LOC: LAB 17:42 → LAB SHORT 17:42
PROVIDERS: Internal Medicine
DX: N18.31 Chronic kidney disease, stage 3a (principal); E11.22 Type 2 diabetes mellitus with diabetic chronic kidney disease; E11.8 Type 2 diabetes mellitus with unspecified complications
CPT/HCPCS: 82043; 82570

== ENCOUNTER 2024-08-26 09:36 | Emergency (ER) | payer OTHER ==
[~2024-08-26] VITALS: Ht 160 cm; Wt 106.6 kg
[2024-08-26 10:34] LABS: BASOPHILS ABSOLUTE AUTO 0.01 K/mm3 (0.00-0.23); BASOPHILS PERCENT AUTO 0 % (0-2); EOSINOPHILS ABSOLUTE AUTO 0.09 K/mm3 (0.00-0.68); EOSINOPHILS PERCENT AUTO 3 % (0-6); Hematocrit 34.1 % (33.0-51.0); Hemoglobin 11.1 g/dL (11.5-16.0); IMMATURE GRAN ABSOLUTE AUTO 0.01 K/mm3 (0.00-0.10); IMMATURE GRAN PERCENT AUTO 0 % (0-1); LYMPHOCYTES ABSOLUTE AUTO 0.89 K/mm3 (0.84-5.20); LYMPHOCYTES PERCENT AUTO 30 % (21-46); MONOCYTES ABSOLUTE AUTO 0.27 K/mm3 (0.16-1.47); MONOCYTES PERCENT AUTO 9 % (4-13); Mean Corpuscular HGB Conc 32.6 g/dL (31.5-36.5); Mean Corpuscular Volume 97 fL (80-100); NEUTROPHILS ABSOLUTE AUTO 1.66 K/mm3 (1.96-9.15); NEUTROPHILS PERCENT AUTO 57 % (41-73); NRBC ABSOLUTE 0.00 K/mm3 (0.00-0.02); NRBC Auto 0.0 /100 WBC (0.0-0.2); Platelet Count 56 K/mm3 (150-400); RDW Coefficient Variation 15.1 % (11.7-14.2); RDW Standard Deviation 54.2 fL (35.1-46.3)
[2024-08-26 11:04] LABS: Alanine Aminotransfer (ALT/SGP 11.0 U/L (12-78); Albumin, Blood 2.6 g/dL (3.4-5.0); Albumin/Globulin Ratio 0.7 (0.8-1.8); Anion Gap 4.0 mmol/L (3-11); Aspartate Aminotrans (AST/SGOT 30.0 U/L (12-37); Bilirubin, Total 1.1 mg/dL (0.1-1.0); Blood Urea Nitrogen 19.0 mg/dL (8-24); CO2, Blood 31.0 mmol/L (21-32); Calcium, Blood 8.4 mg/dL (8.5-10.1); Chloride, Blood 105.0 mmol/L (98-108); Creatinine, Blood 1.14 mg/dL (0.40-1.00); Globulin, Blood 3.9 g/dL (2.2-4.0); Glucose, Blood 112.0 mg/dL (70-99); Potassium, Blood 4.0 mmol/L (3.5-5.5); Sodium, Blood 136.0 mmol/L (136-145); Total Protein, Blood 6.5 g/dL (6.4-8.2)
[2024-08-26] MEDS ORDERED: Lasix20 MG PO (12:52)
[2024-08-26 13:06] VITALS: BP 125/48
== END 2024-08-26 13:06 | disposition home or self-care (01) ==
LOC: ER 09:36
PROVIDERS: Emergency Medicine
DX: R60.0 Localized edema (principal); J44.9 Chronic obstructive pulmonary disease, unspecified; E11.9 Type 2 diabetes mellitus without complications; E78.5 Hyperlipidemia, unspecified; Z88.8 Allergy status to other drugs, medicaments and biological substances; Z79.899 Other long term (current) drug therapy; Z79.82 Long term (current) use of aspirin; Z87.891 Personal history of nicotine dependence
CPT/HCPCS: 71045; 80053; 82140; 83880; 84484; 85025; 93005; 93010; 99285-25

== ENCOUNTER 2024-09-10 16:37 | Inpatient (IN) | payer OTHER ==
[~2024-09-10] VITALS: Ht 160 cm; Wt 112.5 kg
[~2024-09-10 16:37] MED LIST changes: +Lasix20 MG PO
[2024-09-10] MEDS ORDERED: TORSE20 PO (17:22)
[2024-09-10 17:41] LABS: BASOPHILS ABSOLUTE AUTO 0.01 K/mm3 (0.00-0.23); BASOPHILS PERCENT AUTO 0 % (0-2); EOSINOPHILS ABSOLUTE AUTO 0.11 K/mm3 (0.00-0.68); EOSINOPHILS PERCENT AUTO 3 % (0-6); Hematocrit 35.6 % (33.0-51.0); Hemoglobin 11.6 g/dL (11.5-16.0); IMMATURE GRAN ABSOLUTE AUTO 0.01 K/mm3 (0.00-0.10); IMMATURE GRAN PERCENT AUTO 0 % (0-1); LYMPHOCYTES ABSOLUTE AUTO 1.06 K/mm3 (0.84-5.20); LYMPHOCYTES PERCENT AUTO 26 % (21-46); MONOCYTES ABSOLUTE AUTO 0.38 K/mm3 (0.16-1.47); MONOCYTES PERCENT AUTO 9 % (4-13); Mean Corpuscular HGB Conc 32.6 g/dL (31.5-36.5); Mean Corpuscular Volume 98 fL (80-100); NEUTROPHILS ABSOLUTE AUTO 2.55 K/mm3 (1.96-9.15); NEUTROPHILS PERCENT AUTO 62 % (41-73); NRBC ABSOLUTE 0.00 K/mm3 (0.00-0.02); NRBC Auto 0.0 /100 WBC (0.0-0.2); Platelet Count 76 K/mm3 (150-400); RDW Coefficient Variation 15.9 % (11.7-14.2); RDW Standard Deviation 57.1 fL (35.1-46.3)
[2024-09-10 17:51] LABS: Alanine Aminotransfer (ALT/SGP 11.0 U/L (12-78); Albumin, Blood 2.6 g/dL (3.4-5.0); Albumin/Globulin Ratio 0.6 (0.8-1.8); Anion Gap 4.0 mmol/L (3-11); Aspartate Aminotrans (AST/SGOT 25.0 U/L (12-37); Bilirubin, Total 0.9 mg/dL (0.1-1.0); Blood Urea Nitrogen 16.0 mg/dL (8-24); CO2, Blood 33.0 mmol/L (21-32); Calcium, Blood 8.5 mg/dL (8.5-10.1); Chloride, Blood 107.0 mmol/L (98-108); Creatinine, Blood 1.12 mg/dL (0.40-1.00); Globulin, Blood 4.2 g/dL (2.2-4.0); Glucose, Blood 87.0 mg/dL (70-99); Potassium, Blood 3.7 mmol/L (3.5-5.5); Sodium, Blood 140.0 mmol/L (136-145); Total Protein, Blood 6.8 g/dL (6.4-8.2)
[2024-09-10] MEDS ORDERED: Ondansetron HCl 2 MG / ML 2ML Vial IV PRN (20:45)
[2024-09-11] VITALS (7 sets, daily range): BP systolic 105–147; BP diastolic 54–94
[2024-09-11] MEDS ORDERED: LACT10SY PO (00:46)
[2024-09-11] MEDS ORDERED: Miconazole Nitrate 2% 85 GM PWD TOP ONE (01:40)
[2024-09-11 03:55] LABS: BASOPHILS ABSOLUTE AUTO 0.01 K/mm3 (0.00-0.23); BASOPHILS PERCENT AUTO 0 % (0-2); EOSINOPHILS ABSOLUTE AUTO 0.07 K/mm3 (0.00-0.68); EOSINOPHILS PERCENT AUTO 2 % (0-6); Hematocrit 33.9 % (33.0-51.0); Hemoglobin 11.1 g/dL (11.5-16.0); IMMATURE GRAN ABSOLUTE AUTO 0.00 K/mm3 (0.00-0.10); IMMATURE GRAN PERCENT AUTO 0 % (0-1); LYMPHOCYTES ABSOLUTE AUTO 0.85 K/mm3 (0.84-5.20); LYMPHOCYTES PERCENT AUTO 25 % (21-46); MONOCYTES ABSOLUTE AUTO 0.32 K/mm3 (0.16-1.47); MONOCYTES PERCENT AUTO 10 % (4-13); Mean Corpuscular HGB Conc 32.7 g/dL (31.5-36.5); Mean Corpuscular Volume 100 fL (80-100); NEUTROPHILS ABSOLUTE AUTO 2.13 K/mm3 (1.96-9.15); NEUTROPHILS PERCENT AUTO 63 % (41-73); NRBC ABSOLUTE 0.00 K/mm3 (0.00-0.02); NRBC Auto 0.0 /100 WBC (0.0-0.2); Platelet Count 56 K/mm3 (150-400); RDW Coefficient Variation 15.9 % (11.7-14.2); RDW Standard Deviation 59.1 fL (35.1-46.3)
[2024-09-11 04:18] LABS: Alanine Aminotransfer (ALT/SGP 10.0 U/L (12-78); Albumin, Blood 2.3 g/dL (3.4-5.0); Albumin/Globulin Ratio 0.6 (0.8-1.8); Anion Gap 6.0 mmol/L (3-11); Aspartate Aminotrans (AST/SGOT 27.0 U/L (12-37); Bilirubin, Total 0.7 mg/dL (0.1-1.0); Blood Urea Nitrogen 16.0 mg/dL (8-24); CO2, Blood 29.0 mmol/L (21-32); Calcium, Blood 8.1 mg/dL (8.5-10.1); Chloride, Blood 108.0 mmol/L (98-108); Creatinine, Blood 1.03 mg/dL (0.40-1.00); Globulin, Blood 3.7 g/dL (2.2-4.0); Glucose, Blood 112.0 mg/dL (70-99); Magnesium, Blood 1.8 mg/dL (1.6-2.4); Potassium, Blood 3.6 mmol/L (3.5-5.5); Sodium, Blood 139.0 mmol/L (136-145); Total Protein, Blood 6.0 g/dL (6.4-8.2)
--- NOTE | 2024-09-11 07:25 | NUR ---
SHIFT SUMMARY: PT ARRIVES TO PCU 17 FROM THE ER VIA GURNEY AROUND MIDNIGHT. PT WAS A SBA TRANSFER TO THE HOSPITAL BED. PT ORIENTED TO ROOM AND CALL LIGHT. GREGORY IS A&OX4, FORGETFUL AT TIMES BUT PLEASANT AND COOPERATIVE WITH CARE. VSS, BP IS SOFT, MAP >65, AFEBRILE, ON RA. PT WEARS HOME CPAP WHILE ASLEEP. AFIB/AFLUTTER 70'S-110'S. +3 BLE EDEMA. C/O 8/10 PAIN IN HER RIGHT ARM, RIGHT SHOULDER, AND NECK. MEDICATED WITH PRN 5MG PO OXYCODONE. PT TOLERATING A CONS CARB DIET. X1 ASSIST TO BR. VOIDED A SMALL AMOUNT OF YELLOW URINE. NO BM THIS SHIFT. BED IN LOWEST POSITION, CALL LIGHT WITHIN REACH. CALLS APPROPRIATELY AND IS ABLE TO ADVOCATE NEEDS EFFECTIVELY.
[2024-09-11] MEDS ORDERED: Enoxaparin 40 MG/0.4 ML SYR SC SCH (09:00)
--- NOTE | 2024-09-11 09:48 | NUR ---
"Spiritual Care Visit | Pt. Request Pt. is awake in bed and welcomes my visit. Pt. is pleasant.Facilitated a life review and pt. shared about the support and meaning of her parish family in [place]. Listen with interest and empathy. Pt. displays evidence of being encouraged. Prayer is offered, but Pt. declined consistant with her JW tradition. Pt. verbalized gratitude for the spiritual care visit."
[2024-09-11] MEDS ORDERED: Formoterol/Mometasone MDI 5/100 mcg 13 GM INH SCH (12:30)
[2024-09-11] MEDS ORDERED: Albuterol HFA200 ACT/6.7 GM INH INH PRN (12:30)
[2024-09-11] MEDS ORDERED: LATA.005SO BOTHEYES (18:38)
--- NOTE | 2024-09-11 19:17 | NUR ---
End of Shift Pt A&O x4. VSS. Spo2 > 92% on RA. CPAP at bedside for use while sleeping. Monitor showing Afib, HR 90s-110s. 1 episode of pt ambulating to bathrom w/ HR increase to 140s-160s. HR then returned to 90s-110s once back in bed. Pt w/ continued +3 BLE edema.
[2024-09-11] MEDS ORDERED: Miconazole Nitrate 2% 85 GM PWD TOP SCH (21:00)
[2024-09-11] MEDS ORDERED: Latanoprost 0.005% Opth Soln 2.5 ML BOTHEYES SCH (21:00)
[2024-09-12 00:17] VITALS: BP 116/65
[2024-09-12 03:55] LABS: BASOPHILS ABSOLUTE AUTO 0.01 K/mm3 (0.00-0.23); BASOPHILS PERCENT AUTO 0 % (0-2); EOSINOPHILS ABSOLUTE AUTO 0.07 K/mm3 (0.00-0.68); EOSINOPHILS PERCENT AUTO 2 % (0-6); Hematocrit 35.3 % (33.0-51.0); Hemoglobin 11.5 g/dL (11.5-16.0); IMMATURE GRAN ABSOLUTE AUTO 0.00 K/mm3 (0.00-0.10); IMMATURE GRAN PERCENT AUTO 0 % (0-1); LYMPHOCYTES ABSOLUTE AUTO 0.85 K/mm3 (0.84-5.20); LYMPHOCYTES PERCENT AUTO 30 % (21-46); MONOCYTES ABSOLUTE AUTO 0.32 K/mm3 (0.16-1.47); MONOCYTES PERCENT AUTO 11 % (4-13); Mean Corpuscular HGB Conc 32.6 g/dL (31.5-36.5); Mean Corpuscular Volume 100 fL (80-100); NEUTROPHILS ABSOLUTE AUTO 1.61 K/mm3 (1.96-9.15); NEUTROPHILS PERCENT AUTO 56 % (41-73); NRBC ABSOLUTE 0.00 K/mm3 (0.00-0.02); NRBC Auto 0.0 /100 WBC (0.0-0.2); Platelet Count 53 K/mm3 (150-400); RDW Coefficient Variation 16.1 % (11.7-14.2); RDW Standard Deviation 59.3 fL (35.1-46.3)
[2024-09-12 04:19] LABS: Anion Gap 5.0 mmol/L (3-11); Blood Urea Nitrogen 14.0 mg/dL (8-24); CO2, Blood 30.0 mmol/L (21-32); Calcium, Blood 8.2 mg/dL (8.5-10.1); Chloride, Blood 107.0 mmol/L (98-108); Creatinine, Blood 0.98 mg/dL (0.40-1.00); Glucose, Blood 117.0 mg/dL (70-99); Potassium, Blood 3.3 mmol/L (3.5-5.5); Sodium, Blood 139.0 mmol/L (136-145)
[2024-09-12 04:22] VITALS: BP 121/70
--- NOTE | 2024-09-12 06:46 | NUR ---
SHIFT SUMMARY: PT IS A&OX4, PLEASANT AND COOPERATIVE WITH CARE. VSS, AFEBRILE, ON RA. PT WEARS HOME CPAP WHILE ASLEEP. AFIB/AFLUTTER 70'S-110'S, INCREASES TO 160'S WITH EXERTION. +4 BLE EDEMA. C/O 8/10 PAIN IN HER RIGHT ARM, RIGHT SHOULDER, AND NECK. MEDICATED WITH PRN 5MG PO OXYCODONE. PT STATES SHE IS CONCERNED ABOUT NOT DIURESING WELL, AND HER WEIGHT INCREASING. PT TOLERATING A CONS CARB DIET. SBA TO BR. VOIDING ADEQUATE AMOUNTS OF CONCENTRATED, YELLOW URINE. NO BM THIS SHIFT. BED IN LOWEST POSITION, CALL LIGHT WITHIN REACH. CALLS APPROPRIATELY AND IS ABLE TO ADVOCATE NEEDS EFFECTIVELY.
[2024-09-12 08:30] VITALS: BP 102/59
[2024-09-12] MEDS ORDERED: Vitamin B Complex 1 EA Softgel PO SCH (09:00)
[2024-09-12] MEDS ORDERED: Potassium Chloride 10 Meq Tablet SA PO SCH (09:00)
[2024-09-12 12:07] VITALS: BP 122/81
[2024-09-12 16:22] VITALS: BP 114/68
--- NOTE | 2024-09-12 17:39 | NUR ---
PT SUMMARY; NO ACUTE CHANGE FOR THE SHIFT. PT CONTINUES TO DIURESE PT HAD ABOUT 1L URINE OUT FOR THE SHIFT. HAD LOOSE BM X1 FROM LACTULOSE. VANDANA HOSE I BILAT EXT PER PT'S REQUEST FOR BILATERAL EDEMA. VITALS HRR AFIB 80-90'S TACHS UP TO 120'S WITH EXERTION, SBP 110-130'S, SATS ABOVE 95% ON RA AFEBRILE. PT HAS BEEN UP IN THE RECLINER MOST OF THE SHIFT, RECEIVED A SHOWER THIS MORNING. PT HAS BEEN COOPERATIVE WITH CARES ABLE TO MAKE NEEDS KNOWN. NO OTHER ISSUES REPORTED FOR THE SHIFT WILL CONTINUE TO MONITOR
[2024-09-12 19:54] VITALS: BP 121/58
[2024-09-13 00:20] VITALS: BP 104/80
[2024-09-13 03:57] VITALS: BP 118/84
[2024-09-13 04:20] LABS: BASOPHILS ABSOLUTE AUTO 0.01 K/mm3 (0.00-0.23); BASOPHILS PERCENT AUTO 0 % (0-2); EOSINOPHILS ABSOLUTE AUTO 0.06 K/mm3 (0.00-0.68); EOSINOPHILS PERCENT AUTO 2 % (0-6); Hematocrit 32.9 % (33.0-51.0); Hemoglobin 10.8 g/dL (11.5-16.0); IMMATURE GRAN ABSOLUTE AUTO 0.00 K/mm3 (0.00-0.10); IMMATURE GRAN PERCENT AUTO 0 % (0-1); LYMPHOCYTES ABSOLUTE AUTO 0.92 K/mm3 (0.84-5.20); LYMPHOCYTES PERCENT AUTO 36 % (21-46); MONOCYTES ABSOLUTE AUTO 0.22 K/mm3 (0.16-1.47); MONOCYTES PERCENT AUTO 9 % (4-13); Mean Corpuscular HGB Conc 32.8 g/dL (31.5-36.5); Mean Corpuscular Volume 98 fL (80-100); NEUTROPHILS ABSOLUTE AUTO 1.35 K/mm3 (1.96-9.15); NEUTROPHILS PERCENT AUTO 53 % (41-73); NRBC ABSOLUTE 0.00 K/mm3 (0.00-0.02); NRBC Auto 0.0 /100 WBC (0.0-0.2); Platelet Count 52 K/mm3 (150-400); RDW Coefficient Variation 16.0 % (11.7-14.2); RDW Standard Deviation 57.0 fL (35.1-46.3)
[2024-09-13 04:35] LABS: Anion Gap 7.0 mmol/L (3-11); Blood Urea Nitrogen 14.0 mg/dL (8-24); CO2, Blood 31.0 mmol/L (21-32); Calcium, Blood 8.1 mg/dL (8.5-10.1); Chloride, Blood 106.0 mmol/L (98-108); Creatinine, Blood 0.96 mg/dL (0.40-1.00); Glucose, Blood 98.0 mg/dL (70-99); Potassium, Blood 3.2 mmol/L (3.5-5.5); Sodium, Blood 141.0 mmol/L (136-145)
--- NOTE | 2024-09-13 06:17 | NUR ---
SHIFT SUMMARY: PT IS A&OX4, FORGETFUL AT TIMES, AND SEEMS ANXIOUS. VSS, AFEBRILE, ON RA, PT WEARS HOME CPAP WHILE ASLEEP. AFIB/AFLUTTER 60'S-100'S. +4 BLE EDEMA. C/O 8/10 PAIN IN HER RIGHT ARM, RIGHT SHOULDER, AND NECK. MEDICATED WITH PRN 5MG PO OXYCODONE. POTASSIUM THIS MORNING WAS 3.2, RESIDENT NOTIFIED, SEE NEW ORDER FOR REPLACEMENT. PT TOLERATING A CONS CARB DIET. SBA TO BR. VOIDING SMALL AMOUNTS OF CONCENTRATED, YELLOW URINE. NO BM THIS SHIFT. BED IN LOWEST POSITION, CALL LIGHT WITHIN REACH. CALLS APPROPRIATELY AND IS ABLE TO ADVOCATE NEEDS EFFECTIVELY.
[2024-09-13 07:46] VITALS: BP 103/72
[2024-09-13 11:18] VITALS: BP 102/57
[2024-09-13] MEDS ORDERED: MIDODRINE HCL10 M1 PO (12:15)
[2024-09-13] MEDS ORDERED: SPIR25 PO (12:15)
[2024-09-13] MEDS ORDERED: FURO40 PO (12:16)
--- NOTE | 2024-09-13 16:39 | NUR ---
PT DISCHARGED TO HOME WITH DISCHARGE MEDICATIONS ORDERED. PT ABLE TO WALK AROUND THE UNIT WIHT NO ISSUES. PRESCRIPTIONS SENT TO [facility]. VITALS HAS BEEN STABLE. NO ISSUES REPORTED FOR THE SHIFT. DAUGHTER CAME IN AND PROVIDED TRANSPO FOR THE PT. DISCHARGE INTRUCTIONS DISCLOSED WITH DAUGHTER AND PT BOTH VERBALIZED UNDERSTANDING. ALL BELONGINGS SENT WITH THE PT ACCOMPANIED VIA WHEELCHAIR FOR TRANSPORT
== END 2024-09-13 15:37 | disposition home or self-care (01) | DRG 432 ==
LOC: ER 16:37 → ERHOLD 16:38 → PCU 16:38
PROVIDERS: Emergency Medicine; Family Medicine; ADMIT Student in an Organized Health Care Education/Training Program
DX: K74.60 Unspecified cirrhosis of liver (principal); I50.31 Acute diastolic (congestive) heart failure; F11.20 Opioid dependence, uncomplicated; I48.20 Chronic atrial fibrillation, unspecified; K76.0 Fatty (change of) liver, not elsewhere classified; D69.6 Thrombocytopenia, unspecified; K21.9 Gastro-esophageal reflux disease without esophagitis; E78.5 Hyperlipidemia, unspecified; E87.6 Hypokalemia; I95.9 Hypotension, unspecified; I08.1 Rheumatic disorders of both mitral and tricuspid valves; J44.9 Chronic obstructive pulmonary disease, unspecified; G47.33 Obstructive sleep apnea (adult) (pediatric); F41.1 Generalized anxiety disorder; G89.29 Other chronic pain; Z90.49 Acquired absence of other specified parts of digestive tract; Z96.1 Presence of intraocular lens; Z98.42 Cataract extraction status, left eye; Z98.41 Cataract extraction status, right eye; Z98.890 Other specified postprocedural states; Z88.8 Allergy status to other drugs, medicaments and biological substances; Z79.82 Long term (current) use of aspirin; Z79.899 Other long term (current) drug therapy
CPT/HCPCS: 36415; 71045; 80048; 80053; 82140; 82947; 83735; 83880; 84484; 85025; 93005; 93010; 93306; 94640; 94664; 94762; 99284-25; A9270; G0378; J1650; J1938